=== PATIENT | male | born 1985 | race Two or more races ===

== ENCOUNTER 2024-04-28 12:25 | Outpatient (CLI) | payer OTHER ==
[~2024-04-28 12:25] MED LIST: FINASTERIDE5 MG PO
== END 2024-04-28 12:35 | disposition home or self-care (01) ==
LOC: SONOGRAMA 12:25
DX: R74.8 Abnormal levels of other serum enzymes (principal); E80.7 Disorder of bilirubin metabolism, unspecified

== ENCOUNTER 2024-10-20 14:25 | Outpatient (CLI) | payer OTHER | END 2024-10-20 14:34 | disposition home or self-care (01) | LOC: SONOGRAMA 14:25 | PROVIDERS: ATTEND Physical Medicine & Rehabilitation | DX: M79.652 Pain in left thigh (principal) ==